=== PATIENT | female | born 1945 | race Caucasian/White ===

== ENCOUNTER → 2024-04-02 10:53 | Outpatient (REF) | payer OTHER, SELFPAY | LOC: EMG 10:53 | PROVIDERS: ATTENDING PHYSICIAN Orthopaedic Surgery Hand Surgery; FAMILY PHYSICIAN Family Medicine | DX: M79.642 Pain in left hand (principal); R20.0 Anesthesia of skin | CPT/HCPCS: 95886; 95910 ==